=== PATIENT | female | born 1955 | race Caucasian/White ===

== ENCOUNTER 2021-09-14 09:55 | Emergency (ER) | payer MEDICARE, MEDICAID ==
[~2021-09-14] VITALS: Ht 160 cm; Wt 107.1 kg
[2021-09-14] MEDS ORDERED: IBUP-1984 PO (13:51)
[2021-09-14 14:03] VITALS: BP 128/65
== END 2021-09-14 14:05 | disposition home or self-care (01) ==
LOC: ER 09:55
DX: S52.131D Displaced fracture of neck of right radius, subsequent encounter for closed fracture with routine healing (principal); I10 Essential (primary) hypertension; J45.909 Unspecified asthma, uncomplicated; Z87.01 Personal history of pneumonia (recurrent); Z79.899 Other long term (current) drug therapy; Z91.81 History of falling; W18.09XD Striking against other object with subsequent fall, subsequent encounter
CPT/HCPCS: 29105; 73030; 73080; 73090; 73110; 99284